=== PATIENT | female | born 1980 ===

== ENCOUNTER 2018-12-03 17:44 | Emergency (ER) | payer SELFPAY ==
[2018-12-03 17:44] VITALS: BMI 35.5
[2018-12-03 17:55] VITALS: RESP 16; O2SAT 100
--- NOTE | 2018-12-03 18:44 | ED PDOC ---
HPI: CCC, URI, Sore Throat Time Seen by Provider: 12/03/18 18:10 Chief Complaint (Nursing): ENT Problem Chief Complaint (Provider): ENT Problem History Per: Patient History/Exam Limitations: no limitations Onset/Duration Of Symptoms: Days (x 3 weeks) Current Symptoms Are (Timing): Still Present Location Of Pain: Ear(s) (right), Throat Associated Symptoms: Fever, Sore Throat, Cough Ear Symptoms: Right: Ear Pain Additional Complaint(s): 38 year old with a history of gastritis presents to the ED for evaluation of a sore throat, subjective fever and a non-productive cough for three weeks. Arielle ent has also since developed right sided ear pain. She states that she has trouble swallowing because of pain, but is keeping up with recommended water intake. Patient took one Penicillin 500 approximately two weeks ago that was left over from a throat infection in July. Otherwise, she took no other medications. Denies body aches, headache, nausea, vomiting, diarrhea and shortness of breath. PMD: none provided Past Medical History Reviewed: Historical Data, Nursing Documentation, Vital Signs Vital Signs: Last Vital Signs Temp 98.1 F 12/03/18 17:53 Pulse 72 12/03/18 17:53 Resp 16 12/03/18 17:53 BP 143/90 12/03/18 17:53 Pulse Ox 100 12/03/18 17:53 Primary Care Provider: FAMILY PROVIDER,NO - Medical History PMH: Gastritis, Gall Bladder Disease (GB stones), Kidney Stones Denies: Colonic Polyps, Fractures, Chronic Kidney Disease - Surgical History Surgical History: Cholecystectomy, Endoscopy - Family History Family History: States: Unknown Family Hx - Immunization History Hx Tetanus Toxoid Vaccination: No Hx Influenza Vaccination: No Hx Pneumococcal Vaccination: No - Home Medications Home Medications: Ambulatory Orders Medication Instructions Recorded Omeprazole 40 mg PO DAILY 01/01/17 Ibuprofen [Motrin Tab] 600 mg PO Q6 PRN 7 Days tab 12/03/18 guaiFENesin/Dextromethorphan 10 ml PO Q4 PRN 7 Days udc 12/03/18 [guaiFENesin-DM] - Allergies Allergies/Adverse Reactions: Allergies Allergy/AdvReac Type Severity Reaction Status Date / Time morphine Allergy Intermediate VOMITING Verified 12/03/18 17:52 tramadol Allergy Intermediate RASH Verified 12/03/18 17:52 Review of Systems ROS Statement: Except As Marked, All Systems Reviewed And Found Negative Constitutional: Positive for: Fever. Negative for: Other (body aches) ENT: Positive for: Ear Pain (right), Throat Pain Respiratory: Positive for: Cough. Negative for: Shortness of Breath, Sputum Gastrointestinal: Negative for: Nausea, Vomiting, Diarrhea Neurological: Negative for: Headache Physical Exam - Reviewed Nursing Documentation Reviewed: Yes Vital Signs Reviewed: Yes - Physical Exam Appears: Positive for: Non-toxic, No Acute Distress Head Exam: Positive for: ATRAUMATIC, NORMAL INSPECTION, NORMOCEPHALIC Skin: Positive for: Normal Color, Warm, Dry Eye Exam: Positive for: EOMI, Normal appearance, PERRL ENT: Positive for: Normal ENT Inspection, Pharyngeal Erythema (mild), Other (no findings on lymphnode exam). Negative for: Tonsillar Exudate, Tonsillar Swelling Neck: Positive for: Normal, Painless ROM, Supple Cardiovascular/Chest: Positive for: Regular Rate, Rhythm. Negative for: Murmur Respiratory: Positive for: Normal Breath Sounds. Negative for: Respiratory Distress Neurological/Psych: Positive for: Awake, Alert, Normal Tone, Oriented (x 3). Negative for: Motor/Sensory Deficits - Laboratory Results Result Diagrams: 12/03/18 19:05 12/03/18 19:05 - ECG O2 Sat by Pulse Oximetry: 100 (RA) Pulse Ox Interpretation: Normal Medical Decision Making Medical Decision Makin:20 MDM: CBC, BMP, infectious mononucleosis, rapid strep Motrin 600 PO x 1 19:52 Patient is positive for infectious mononucleosis. On re-evaluation, patient is feeling much better. Advised her to take Tylenol and Motrin for sore throat, which may last 5-6 weeks, and to avoid abdominal trauma because of the possibility of an enlarged spleen. Return instructions giv en. Scribe Attestation: Documented by Ina Valdemar, acting as a scribe for Anya Fisher PA-C Provider Scribe Attestation: All medical record entries made by the Scribe were at my direction and personally dictated by me. I have reviewed the chart and agree that the record accurately reflects my personal performance of the history, physical exam, medical decision making, and the department course for this patient. I have also personally directed, reviewed, and agree with the discharge instructions and disposition. Disposition - Clinical Impression Clinical Impression: Infectious mononucleosis - Patient ED Disposition Is Patient to be Admitted: No - Disposition Referrals: [facility] [Outside] [facility] [Outside] [facility] [Outside] Disposition: Routine/Home Disposition Time: 19:55 Condition: IMPROVED Additional Instructions: Take Tylenol or Ibuprofen for pain. Your sore throat may last up to 5 - 6 weeks. Avoid contact sports as you are at increased risk of spleen enlargement with this virus. Take Robitussin DM for cough as needed. Prescriptions: guaiFENesin/Dextromethorphan [guaiFENesin-DM] 10 ml PO Q4 PRN 7 Days udc PRN Reason: Cough Ibuprofen [Motrin Tab] 600 mg PO Q6 PRN 7 Days tab PRN Reason: Pain, Moderate (4-7) Instructions: Mononucleosis (DC) Forms: [employer] (Vietnamese) Print Language: [id number]
[2018-12-03 19:18] LABS: BASO % 0.4 % (0.0-2.0); EOS # 0.2 K/uL (0.0-0.7); EOS % 2.5 % (0.0-4.0); HEMOGLOBIN 10.4 g/dL (12.0-16.0); LYMPH # 2.3 K/uL (1.0-4.3); LYMPH % 26.1 % (20.0-40.0); MEAN CELL VOLUME 78.8 fl (81.0-99.0); MEAN CORPUSCULAR HEMOGLOBIN 25.2 pg (27.0-31.0); MEAN PLATELET VOLUME 7.7 fl (7.2-11.7); MONO # 0.6 K/uL (0.0-0.8); MONO % 7.5 % (0.0-10.0); NEUT # 5.5 K/uL (1.8-7.0); NEUT % 63.5 % (50.0-75.0); NRBC % 0.1 % (0.0-0.0); RBC 4.13 Mil/uL (3.80-5.20); RED CELL DISTRIBUTION WIDTH 14.7 % (11.5-14.5); WHITE BLOOD COUNT 8.7 K/uL (4.8-10.8)
[2018-12-03 19:29] LABS: BLOOD UREA NITROGEN 8 mg/dl (7-17); CALCIUM 8.5 mg/dL (8.4-10.2); GFR NON-AFRICAN AMERICAN > 60
[2018-12-03 20:16] VITALS: BP 138/72; PULSE 80; TEMP 98
== END 2018-12-03 20:13 | disposition home or self-care (01) ==
LOC: H.ER 17:44
DX: B27.90 Infectious mononucleosis, unspecified without complication (principal); Z87.442 Personal history of urinary calculi; Z88.8 Allergy status to other drugs, medicaments and biological substances